=== PATIENT | male | born 1965 | race Caucasian/White ===

== ENCOUNTER → 2016-11-06 | Outpatient (CLI) | payer OTHER | LOC: RAD 10:26 | DX: R06.00 Dyspnea, unspecified (principal); D73.89 Other diseases of spleen; B94.8 Sequelae of other specified infectious and parasitic diseases ==

== ENCOUNTER → 2022-09-28 | Outpatient (CLI) | payer OTHER | LOC: RAD 15:05 | DX: I45.10 Unspecified right bundle-branch block (principal) ==